=== PATIENT | female | born 1975 ===

== ENCOUNTER 2021-03-23 02:12 | Emergency (ER) | payer OTHER ==
[~2021-03-23] VITALS: Ht 172.7 cm; Wt 65.6 kg
[2021-03-23 02:19] VITALS: BP 139/98
--- NOTE | 2021-03-23 02:26 | NUR ---
PA EVALED PT IN TRIAGE. ORDERS RECEIVED, AND PT TO BE DC
--- NOTE | 2021-03-23 03:33 | NUR ---
PT CALLED FOR DISCHARGE. NA IN LOBBY. PT LEFT PRIOR TO RECIEVING DC PAPERS
== END 2021-03-23 03:35 | disposition home or self-care (01) ==
LOC: ED 02:22
DX: R20.2 Paresthesia of skin (principal); M62.838 Other muscle spasm
CPT/HCPCS: 99283